=== PATIENT | male | born 1955 | race Two or more races ===

== ENCOUNTER 2017-06-18 15:05 | Emergency (ER) | payer SELFPAY ==
[2017-06-18 15:24] VITALS: TEMP 97.9; BMI 26.6
--- NOTE | 2017-06-18 15:28 | PDOC ---
Rapid Medical Evaluation Time Seen by Provider: 06/18/17 15:10 Medical Evaluation: 06/18/17 15:22 The patient presents with a chief complaint of: [Nausea, dizziness, elevated sugar, elevated BP at home] I have performed a brief in-person evaluation of this patient. Pertinent physical exam findings: vss, [ambulatory, lungs clear , RRR. ] I have ordered the following: [None] The patient will proceed to the ED for further evaluation. 06/18/17 15:26 Discharge Disposition - Diagnosis Dizziness - Referrals - Patient Instructions - Post Discharge Activity
[2017-06-18] MEDS ORDERED: SODIUM CHLORIDE 1,000 ML IV STA (15:53)
[2017-06-18] MEDS ORDERED: ONDANSETRON 4 MG/2 ML VIAL IVPUSH ONE (16:04)
--- NOTE | 2017-06-18 16:04 | PDOC ---
History of Present Illness - General Chief Complaint: Lightheaded Stated Complaint: DIZZINESS, NAUSEA Time Seen by Provider: 06/18/17 15:10 History Source: Patient Exam Limitations: No Limitations - History of Present Illness Initial Comments: 06/18/17 15:57 Patient is a 61M with history of HTN and IDDM here today complaining of four days of dizziness. He states that he feels the room moving around him and " feels drunk". He states that this started after he measured his blood sugar to be in the 400s. He denies chest pain, shortness of breath, fevers, chills. He states his dizziness is made worse sense with sitting up and walking. He denies dysuria, denies urinary frequency. Denies history of cardiac problems or stroke. Patient does complain of associated nausea, denies vomiting. Past History - Past Medical History Allergies/Adverse Reactions: Allergies Allergy/AdvReac Type Severity Reaction Status Date / Time No Known Allergies Allergy Verified 06/18/17 15:24 Home Medications: Ambulatory Orders Glipizide 10 mg PO DAILY 06/18/17 Metformin HCl [Metformin HCl ER] 1,000 mg PO BID 06/18/17 Quinapril HCl [Accupril -] 20 mg PO BID 06/18/17 Tamsulosin HCl [Flomax] 0.4 mg PO DAILY 06/18/17 COPD: No Diabetes: Yes HTN: Yes - Suicide/Smoking/Psychosocial Hx Smoking History: Never smoked Have you smoked in the past 12 months: No If you are a former smoker, when did you quit?: 40 years ago Information on smoking cessation initiated: No Review of Systems - Review of Systems Comments:: 06/18/17 16:08 GENERAL/CONSTITUTIONAL: No fever or chills. No weakness. HEAD, EYES, EARS, NOSE AND THROAT: No change in vision. No sore throat. CARDIOVASCULAR: No chest pain or shortness of breath RESPIRATORY: No cough, wheezing, or hemoptysis. GASTROINTESTINAL: Positive for nausea. Negative for vomiting, diarrhea or constipation. GENITOURINARY: No dysuria, frequency, or change in urination. MUSCULOSKELETAL: No joint or muscle swelling or pain. No neck or back pain. SKIN: No rash NEUROLOGIC: No headache, vertigo, loss of consciousness, or change in strength/ sensation. ENDOCRINE: No increased thirst. No abnormal weight change ALLERGIC/IMMUNOLOGIC: No hives or skin allergy. *Physical Exam - Vital Signs Last Vital Signs Temp Pulse Resp BP Pulse Ox 97.9 F 87 16 174/118 99 06/18/17 15:20 06/18/17 15:20 06/18/17 15:20 06/18/17 15:20 06/18/17 15:20 - Physical Exam Comments: 06/18/17 16:10 GENERAL: Awake, alert, and fully oriented, in no acute distress HEAD: No signs of trauma, normocephalic, atraumatic EYES: PERRLA, EOMI, sclera anicteric, conjunctiva clear ENT: Auricles normal inspection, hearing grossly normal, nares patent, oropharynx clear without exudates. Moist mucosa LUNGS: No distress, speaks full sentences, clear to auscultation bilaterally HEART: Regular rate and rhythm, normal S1 and S2, no murmurs, rubs or gallops, peripheral pulses normal and equal bilaterally. ABDOMEN: Soft, nontender, normoactive bowel sounds. No guarding, no rebound. No masses EXTREMITIES: Normal inspection, Normal range of motion, no edema. No clubbing or cyanosis. NEUROLOGICAL: Cranial nerves II through XII grossly intact. Normal speech, no focal sensorimotor deficits, no dysmetria. SKIN: Warm, Dry, normal turgor, no rashes or lesions noted. ED Treatment Course - LABORATORY CBC & Chemistry Diagram: 06/18/17 16:19 06/18/17 18:16 - RADIOLOGY Radiology Studies Ordered: Category Date Time Status CXRPORT [CHEST X-RAY PORTABLE*] [RAD] Stat Radiology 06/18/17 15:51 Ordered Medical Decision Making - Medical Decision Making 06/18/17 16:11 Patient is 61M with history of DM and HTN here today complaining of dizziness for four days. Story not consistent with BPPV. Differential diagnosis includes, but is not limited to: DKA, near syncope, posterior stroke, labrynthitis. Will evaluate with cbc, cmp, trop, vbg, ekg, cxr, ua, acetone. Will treat with fluids , zofran, meclizine. 06/18/17 16:57 EKG shows normal sinus rhythm, normal rate = 74. No st elevations/depressions. No significant t wave abnormalities. Good r wave progression. Normal MN/QRS/QTc intervals. 06/18/17 19:14 Laboratory Tests 06/18/17 06/18/17 16:19 16:19 WBC 8.8 Hgb 12.8 Hct 37.6 VBG pH 7.37 CBC normal. VBG ph normal. Trop undetectable. CMP shows a gap of 6. Patient reports resolution of symptoms. Walking without dizziness. Feels better. Will discharge with PCP and neurology follow up. *DC/Admit/Observation/Transfer Diagnosis at time of Disposition: Dizziness - Discharge Dispostion Disposition: HOME Condition at time of disposition: Good Admit: No - Referrals Referrals: Sandip Scott MD [Staff Physician] - Ion oFster MD [Staff Physician] - - Patient Instructions Printed Discharge Instructions: DI for Dizziness-Nonvertigo Additional Instructions: Please call your PCP tomorrow for an appointment to follow up on your dizziness. A number of a PCP has been included in your paper work if you do not have one. Please call a neurologist tomorrow for an appointment as well, a number has been included in your paperwork. Please return if you have any new, worsening or concerning symptoms, especially dizziness, nausea, and confusion. - Post Discharge Activity
[2017-06-18] MEDS ORDERED: MECLIZINE HCL 25 MG TABLET (FP) PO ONE (16:17)
[2017-06-18] MEDS ORDERED: MECLIZINE HCL 25 MG TABLET (FP) ONE (16:30)
[2017-06-18] MEDS ORDERED: ONDANSETRON 4 MG/2 ML VIAL ONE (16:30)
[2017-06-18 16:39] LABS: BASO % 0.8 % (0-2.0); EOS % 14.2 % (0-4.5); HEMATOCRIT 37.6 % (35.4-49); HEMOGLOBIN 12.8 GM/dL (11.7-16.9); LYMPH % 22.3 % (8-40); MCH 27.9 pg (25.7-33.7); MCHC 34.2 g/dl (32.0-35.9); MEAN CELL VOLUME 81.7 fl (80-96); MEAN PLT VOLUME 11.6 fl (7.5-11.1); MONO % 3.9 % (3.8-10.2); NEUT % 58.8 % (42.8-82.8); RDW 13.1 % (11.9-15.9); WHITE BLOOD COUNT 8.8 K/mm3 (4.0-10.0)
[2017-06-18 16:42] LABS: VENOUS PC02 43.4 mmHg (38-52); VENOUS PH 7.37 (7.32-7.42)
[2017-06-18 16:43] LABS: VENOUS PO2 91.3 mmHg (28-48)
--- NOTE | 2017-06-18 17:42 | PDOC ---
Attending Attestation - HPI HPI: 06/18/17 17:42 The patient is a 61-year-old male with a significant past medical history of hypertension and diabetes, who presents to the emergency department with nausea and dizziness for 4 days. He states he woke up 4 days ago and was unable to walk as he felt 'unstable and unbalanced'. He reports he feels like the room is moving. He said his symptoms are worsened when sitting up, standing, or walking. He states the symptoms are alleviated when lying down and at rest. The patient denies chest pain, shortness of breath, and headache. The patient denies fever, chills, vomit, diarrhea and constipation. The patient denies dysuria, frequency, urgency and hematuria. Allergies: NKDA Social History: former smoker (quit 40 years ago) - Physicial Exam PE: 06/18/17 17:43 Vitals: Triage Vital signs reviewed General Appearance: no acute distress, well nourished well developed, Head: Atraumatic, normocephalic Eyes: Pupils equal reactive round, extraocular movement intact Cardiac: Regular rate and rhythm, no murmurs, no rubs, no gallops, Lungs: Clear to auscultation bilateral, good air movement bilaterally, Abdomen: Soft, nondistended, normal bowel sounds, nontender to palpation Extremities: Full range of motion to all extremities, no cyanosis, clubbing, or edema Skin: Warm and dry, no rashes or lesions, no petechiae Neuro: AOX3; Cranial Nerves 2-12 grossly intact, Strength intact to all extremities, Sensation intact to all extremities Psych: normal mood, normal affect - Medical Decision Making 06/18/17 18:49 Re-evaluation: Patient states he is no longer feeling dizzy or lightheaded. <Shanna Neal - Last Filed: 06/18/17 18:49> - Resident Resident Name: Godfrey Aldrich - ED Attending Attestation I have performed the following: I have examined & evaluated the patient, The case was reviewed & discussed with the resident, I agree w/resident's findings & plan, Exceptions are as noted - Medical Decision Making 61 years old diabetic on Flomax for prostate issues presents to the ED with several day history of positional orthostasis Sympt are only present when patient sits up from bed and starts to walk physical feels dizzy lightheaded and unsteady symptoms resolve when he lays back down. On examination he has no focal neurologic deficits in the emergency department he relieved he received 1 L normal saline. Status post normal saline patient now is completely asymptomatic is able to sit up and stand from bed and walk comfortably around the emergency department there is no dizziness or lightheadedness. He has a normal neurologic examination there is no weakness there is no numbness to his no nystagmus there is no pronator drift he has normal finger to nose and normal gait in the emergency department. At this time based on his response to IV fluids as well as his neurologic examination my suspicion for a central neurologic process is low most likely he is suffering from medication adverse effect or from dehydration and positional orthostasis. Patient was provided with neurologic follow-up he will follow-up with his PCP and neurology this week. Return to ED for any returning symptoms or for any concerns. A portion of this note was documented by scribe services under my direction I reviewed the details of note within reason and agree with the documentation with the following case summary and management plan written by me 06/20/17 17:01 <Rafita Greene - Last Filed: 06/20/17 17:01>
[2017-06-18 19:03] LABS: ALBUMIN 2.5 g/dl (3.4-5.0); ANION GAP 6 (8-16); BLOOD UREA NITROGEN 14 mg/dL (7-18); CALCIUM 7.2 mg/dL (8.5-10.1); CHLORIDE 110 mmol/L (98-107); CO2 27 mmol/L (21-32); CREATININE 1.5 mg/dL (0.7-1.3); GLUCOSE,RANDOM 204 mg/dL (74-106); POTASSIUM 5.1 mmol/L (3.5-5.1); SGOT/AST 15 U/L (15-37); SGPT/ALT 17 U/L (12-78); SODIUM 143 mmol/L (136-145)
[2017-06-18 19:07] LABS: ALK PHOS 115 U/L (45-117); BILIRUBIN,TOTAL 0.4 mg/dL (0.2-1.0); TOT PROT 5.3 g/dl (6.4-8.2)
[2017-06-18 19:32] VITALS: BP 177/98; PULSE 88
[2017-06-18 20:06] LABS: ACETONE SERUM NEGATIVE (NEGATIVE)
[2017-06-18 22:04] LABS: PLATELET COUNT 230 K/MM3 (134-434); PLATELET ESTIMATE ADEQUATE
--- NOTE | 2017-06-19 10:42 | EKG ---
Test Reason : Blood Pressure : / mmHG Vent. Rate : 074 BPM Atrial Rate : 074 BPM P-R Int : 136 ms QRS Dur : 090 ms QT Int : 372 ms P-R-T Axes : 037 034 037 degrees QTc Int : 412 ms NORMAL SINUS RHYTHM POSSIBLE LEFT ATRIAL ENLARGEMENT BORDERLINE ECG NO PREVIOUS ECGS AVAILABLE Confirmed by EUGENIO MORENO, PITA ([id number]) on 06/19/2017 10:42:21 AM Referred By: Confirmed By:PITA BECKER MD
== END 2017-06-18 19:34 | disposition home or self-care (01) ==
LOC: JER 15:05
PROC: 3E033GC Introduction of Other Therapeutic Substance into Peripheral Vein, Percutaneous Approach (ICD-10-PCS; principal; 2017-06-18)
PROC: 3E0337Z Introduction of Electrolytic and Water Balance Substance into Peripheral Vein, Percutaneous Approach (ICD-10-PCS; 2017-06-18)
DX: R42 Dizziness and giddiness (principal)
CPT/HCPCS: 36415; 71045-TC-FY; 80053; 82009; 82550; 82803; 82962; 84484; 85025; 93005; 93010; 99284-25

== ENCOUNTER 2023-05-21 17:34 | Observation (INO) | payer OTHER ==
[2023-05-21 20:07] LABS: BASO % 0.8 % (0-2.0); EOS % 14.2 % (0-4.5); HEMATOCRIT 33.6 % (35.4-49); HEMOGLOBIN 11.1 GM/dL (11.7-16.9); LYMPH % 22.5 % (8-40); MCH 27.5 pg (25.7-33.7); MCHC 33.1 g/dl (32.0-35.9); MEAN PLT VOLUME 10.7 fl (7.5-11.1); MONO % 6.2 % (3.8-10.2); NEUT % 56.3 % (42.8-82.8); PLATELET COUNT 192 10^3/uL (134-434); RBC 4.04 M/mm3 (4.00-5.60); RDW 12.7 % (11.9-15.9); WHITE BLOOD COUNT 7.3 K/mm3 (4.0-10.0)
[2023-05-21 20:35] LABS: POTASSIUM 4.9 mmol/L (3.5-5.1)
[2023-05-21 20:37] LABS: ALBUMIN 3.8 g/dl (3.4-5.0); CALCIUM 8.5 mg/dL (8.5-10.1)
[2023-05-21 20:38] LABS: BLOOD UREA NITROGEN 57.6 mg/dL (7-18)
[2023-05-21 20:38] LABS: INR 1.09 (0.83-1.09); PROTHROMBIN TIME (PATIENT) 12.6 SEC (9.7-13.0)
[2023-05-21 20:40] LABS: CREATININE 3.7 mg/dL (0.55-1.3)
[2023-05-21 20:41] LABS: ACTIVATED PTT 30.2 SECONDS (25.2-36.5); MAGNESIUM 1.8 mg/dL (1.8-2.4)
[2023-05-21 20:42] LABS: BILIRUBIN,TOTAL 0.3 mg/dL (0.2-1)
[2023-05-21 20:45] LABS: PHOSPHOROUS 3.7 mg/dL (2.5-4.9)
[2023-05-21] MEDS: SODIUM CHLORIDE 0.9% 500 ML INFUS.BAG IV ONE (21:23)
[2023-05-21] MEDS ORDERED: TAMSULOSIN HCL 0.4 MG CAP ONE (23:08)
[2023-05-21] MEDS: TAMSULOSIN HCL 0.4 MG CAP PO ONE (23:09)
[2023-05-21 23:49] LABS: EPI CELLS 1 /uL (0-25.1); HYALINE CASTS 0 /uL (0-3.1); PH,URINE 6.5 (5.0-8.0); URINE APPEARANCE CLEAR; URINE BACTERIA 1 /uL (0-1359); URINE BILIRUBIN NEGATIVE (NEGATIVE); URINE COLOR YELLOW; URINE GLUCOSE (UA) NEGATIVE (NEGATIVE); URINE KETONE NEGATIVE (NEGATIVE); URINE LEUK ESTERASE NEGATIVE (NEGATIVE); URINE NITRITE NEGATIVE (NEGATIVE); URINE PROTEIN 1+ (NEGATIVE); URINE RBC 8 /uL (0-23.9); URINE UROBILINOGEN 0.2 mg/dL (0.2-1.0); URINE WBC 1 /uL (0-25.8)
[2023-05-22] MEDS ORDERED: SODIUM CHLORIDE 1,000 ML IV SCH (03:00)
[2023-05-22] MEDS ORDERED: MECLIZINE HCL 25 MG TABLET (FP) PO PRN (03:18)
[2023-05-22] MEDS ORDERED: ONDANSETRON 4 MG/2 ML VIAL IVPUSH PRN (03:18)
[2023-05-22 05:26] VITALS: BMI 24.7
[2023-05-22] MEDS: IVERMECTIN 3 MG TABLET PO ONE (06:49)
[2023-05-22] MEDS: HEPARIN NA (PORCINE) 5,000 UNITS/ML 1ML VIAL SQ SCH (06:50)
[2023-05-22] MEDS: SODIUM CHLORIDE 1,000 ML IV SCH (06:54)
[2023-05-22] MEDS: INSULIN ASPART SLIDING SCALE (NOVOLOG) 1 VIAL SQ SCH (07:59)
[2023-05-22] MEDS: TAMSULOSIN HCL 0.4 MG CAP PO SCH (09:29)
[2023-05-22 10:19] LABS: BASO % 0.8 % (0-2.0); EOS % 12.7 % (0-4.5); HEMATOCRIT 30.2 % (35.4-49); MCH 27.6 pg (25.7-33.7); MCHC 33.2 g/dl (32.0-35.9); MEAN CELL VOLUME 83.2 fl (80-96); MEAN PLT VOLUME 11.6 fl (7.5-11.1); MONO % 6.1 % (3.8-10.2); NEUT % 55.4 % (42.8-82.8); PLATELET COUNT 169 10^3/uL (134-434); RBC 3.63 M/mm3 (4.00-5.60); RDW 12.3 % (11.9-15.9)
[2023-05-22 10:42] LABS: POTASSIUM 4.6 mmol/L (3.5-5.1)
[2023-05-22 10:51] LABS: ALBUMIN 3.3 g/dl (3.4-5.0); BLOOD UREA NITROGEN 50.9 mg/dL (7-18)
[2023-05-22 10:52] LABS: MAGNESIUM 1.7 mg/dL (1.8-2.4)
[2023-05-22 10:54] LABS: CREATININE 3.4 mg/dL (0.55-1.3); PHOSPHOROUS 3.8 mg/dL (2.5-4.9)
[2023-05-22 10:56] LABS: BILIRUBIN,TOTAL 0.5 mg/dL (0.2-1); TOT PROT 6.1 g/dl (6.4-8.2)
[2023-05-22] MEDS: MAGNESIUM 2GM/50ML STERILE WATER IVPB IVPB ONE (13:51)
[2023-05-22 15:27] LABS: EPI CELLS 1 /uL (0-25.1); HYALINE CASTS 0 /uL (0-3.1); URINE APPEARANCE CLEAR; URINE BACTERIA 5 /uL (0-1359); URINE BILIRUBIN NEGATIVE (NEGATIVE); URINE COLOR YELLOW; URINE GLUCOSE (UA) NEGATIVE (NEGATIVE); URINE KETONE NEGATIVE (NEGATIVE); URINE LEUK ESTERASE NEGATIVE (NEGATIVE); URINE NITRITE NEGATIVE (NEGATIVE); URINE PROTEIN 1+ (NEGATIVE); URINE RBC 1 /uL (0-23.9); URINE UROBILINOGEN 0.2 mg/dL (0.2-1.0); URINE WBC 1 /uL (0-25.8)
[2023-05-23] MEDS: ASPIRIN 81 MG CHEWABLE TABLETS PO SCH (09:50)
[2023-05-23 10:06] LABS: BASO % 0.7 % (0-2.0); EOS % 13.8 % (0-4.5); HEMATOCRIT 26.8 % (35.4-49); HEMOGLOBIN 9.2 GM/dL (11.7-16.9); LYMPH % 20.2 % (8-40); MCH 28.3 pg (25.7-33.7); MCHC 34.2 g/dl (32.0-35.9); MEAN CELL VOLUME 82.7 fl (80-96); MEAN PLT VOLUME 11.3 fl (7.5-11.1); MONO % 6.6 % (3.8-10.2); NEUT % 58.7 % (42.8-82.8); PLATELET COUNT 155 10^3/uL (134-434); RBC 3.25 M/mm3 (4.00-5.60); RDW 12.6 % (11.9-15.9); WHITE BLOOD COUNT 7.6 K/mm3 (4.0-10.0)
[2023-05-23 10:18] LABS: POTASSIUM 4.8 mmol/L (3.5-5.1)
[2023-05-23 10:21] LABS: ALBUMIN 2.9 g/dl (3.4-5.0); BLOOD UREA NITROGEN 44.3 mg/dL (7-18)
[2023-05-23 10:24] LABS: CREATININE 2.9 mg/dL (0.55-1.3)
[2023-05-23 10:25] LABS: CHOLESTEROL 169 mg/dL (50-200)
[2023-05-23 10:26] LABS: BILIRUBIN,TOTAL 0.3 mg/dL (0.2-1); LDL CHOLESTEROL (ONLY SJRH) 117 mg/dL (5-100); TOT PROT 5.7 g/dl (6.4-8.2)
[2023-05-23 10:28] LABS: HDL CHOLESTEROL 33 mg/dL (40-60)
[2023-05-23] MEDS: LACTATED RINGERS SOLUTION 1,000 ML/1,000 ML INFUS.BAG IV SCH (13:45)
[2023-05-23] MEDS: ATORVASTATIN CA 40 MG TABLET (FP) PO SCH (21:49)
[2023-05-23] MEDS: TIMOLOL 0.5% OPHTHALMIC SOL 5 ML BOTTLE OS SCH (21:50)
[2023-05-23] MEDS: DORZOLAMIDE 2% HCL OPHTHALMIC SOLUTION 10 ML BOTTLE OS SCH (21:51)
[2023-05-23] MEDS: LATANOPROST 0.005% OPHTH SOLN 2.5ML BOTTLE OS SCH (21:51)
[2023-05-23] MEDS ORDERED: PATIENT'S OWN MEDICATION (NON-FORMULARY) (Dorzolamide Hcl/Timolol Maleat [Cosopt Eye Drops OS SCH (22:00)
[2023-05-24 06:14] VITALS: RESP 18
[2023-05-24] MEDS: amLODIPine BESYLATE 5 MG TABLET (FP) PO SCH (10:47)
[2023-05-24 11:05] LABS: BASO % 0.6 % (0-2.0); EOS % 11.6 % (0-4.5); HEMATOCRIT 28.8 % (35.4-49); HEMOGLOBIN 9.6 GM/dL (11.7-16.9); LYMPH % 19.2 % (8-40); MCH 27.5 pg (25.7-33.7); MCHC 33.4 g/dl (32.0-35.9); MEAN CELL VOLUME 82.6 fl (80-96); MEAN PLT VOLUME 11.7 fl (7.5-11.1); MONO % 6.7 % (3.8-10.2); NEUT % 61.9 % (42.8-82.8); PLATELET COUNT 164 10^3/uL (134-434); RBC 3.49 M/mm3 (4.00-5.60); RDW 12.6 % (11.9-15.9); WHITE BLOOD COUNT 7.8 K/mm3 (4.0-10.0)
[2023-05-24 11:36] LABS: CALCIUM 8.8 mg/dL (8.5-10.1)
[2023-05-24 11:39] LABS: BLOOD UREA NITROGEN 40.4 mg/dL (7-18); CREATININE 2.9 mg/dL (0.55-1.3)
[2023-05-24 11:41] LABS: BILIRUBIN,TOTAL 0.5 mg/dL (0.2-1)
[2023-05-24 14:58] VITALS: BP 132/82; PULSE 87; TEMP 98.3
== END 2023-05-24 16:00 | disposition home or self-care (01) ==
LOC: JER 17:34 → JERBED 21:02 → UNDOADMOB 21:02 → INTOOBSV 21:02 → J5S 05-22 03:42 → JERBED 05-22 03:42 → J5S 05-22 10:42 → JERBED 05-22 10:42
PROVIDERS: ADMIT Internal Medicine; ATTEND Internal Medicine
PROC: 3E013VG Introduction of Insulin into Subcutaneous Tissue, Percutaneous Approach (ICD-10-PCS; principal; 2023-05-22)
PROC: 3E023GC Introduction of Other Therapeutic Substance into Muscle, Percutaneous Approach (ICD-10-PCS; 2023-05-22)
PROC: 3E033GC Introduction of Other Therapeutic Substance into Peripheral Vein, Percutaneous Approach (ICD-10-PCS; 2023-05-22)
PROC: 3E0337Z Introduction of Electrolytic and Water Balance Substance into Peripheral Vein, Percutaneous Approach (ICD-10-PCS; 2023-05-22)
DX: R42 Dizziness and giddiness (principal); I12.9 Hypertensive chronic kidney disease with stage 1 through stage 4 chronic kidney disease, or unspecified chronic kidney disease; N18.9 Chronic kidney disease, unspecified; E11.9 Type 2 diabetes mellitus without complications; H54.7 Unspecified visual loss; D72.10 Eosinophilia, unspecified; N40.0 Benign prostatic hyperplasia without lower urinary tract symptoms; R26.81 Unsteadiness on feet
CPT/HCPCS: 36415; 70450-TC; 70551-TC; 71045-TC-FY; 76775-TC; 80053; 80061; 81003; 82570; 82607; 82962; 83036; 83735; 83935; 84100; 84156; 84300; 84443; 84484; 85025; 85610; 85730; 86618; 86780; 86850; 86900; 86901; 87086; 93005; 93010; 96372; 96374; 97116-GP; 97161-GP; 99285-25; G0378; J1644